=== PATIENT | female | born 1955 | race Caucasian/White ===

== ENCOUNTER 2019-01-21 09:10 | Outpatient (CLI) | payer OTHER | END 2019-01-21 21:19 | disposition home or self-care (01) | LOC: SRD 09:10 | PROVIDERS: ATTEND Orthopaedic Surgery | DX: M22.42 Chondromalacia patellae, left knee (principal); M22.41 Chondromalacia patellae, right knee; M17.0 Bilateral primary osteoarthritis of knee ==